=== PATIENT | male | born 1970 | race Caucasian/White ===

== ENCOUNTER 2021-12-31 12:31 | Emergency (ER) | payer OTHER ==
[2021-12-31 12:43] VITALS: BP 131/77; PULSE 86; TEMP 98.1; BMI 32.3
== END 2021-12-31 14:11 ==
LOC: JERFT 12:31
DX: L03.818 Cellulitis of other sites (principal)
CPT/HCPCS: 99281-25

== ENCOUNTER 2022-01-03 11:02 | Emergency (ER) | payer OTHER ==
[2022-01-03 11:08] VITALS: BP 146/81; PULSE 76; TEMP 97.9; BMI 32.3
[2022-01-03] MEDS ORDERED: LIDOCAINE 1%/EPI 1:100000 (20 ML MULTI DOSE VIAL) IJ ONE (11:55)
[2022-01-03] MEDS ORDERED: LIDOCAINE 1%/EPI 1:100000 (20 ML MULTI DOSE VIAL) ONE (11:57)
[2022-01-03] MEDS ORDERED: IBUPROFEN 600 MG TABLET (FP) PO ONE ×2 (12:23→12:26)
== END 2022-01-03 12:32 | disposition home or self-care (01) ==
LOC: JERFT 11:02
PROC: 0H96XZZ Drainage of Back Skin, External Approach (ICD-10-PCS; principal; 2022-01-03)
DX: L02.212 Cutaneous abscess of back [any part, except buttock and flank] (principal)
CPT/HCPCS: 87070; 87205; 99283-25

== ENCOUNTER 2022-01-12 10:48 | Emergency (ER) | payer OTHER ==
[2022-01-12 10:54] VITALS: BP 120/68; PULSE 80; TEMP 98.4; BMI 32.4
== END 2022-01-12 11:15 | disposition home or self-care (01) ==
LOC: JER 10:48
DX: Z48.00 Encounter for change or removal of nonsurgical wound dressing (principal)
CPT/HCPCS: 99281-25

== ENCOUNTER 2024-01-08 08:06 | Emergency (ER) | payer OTHER ==
[2024-01-08 08:17] VITALS: BP 108/74; PULSE 69; RESP 20; TEMP 98.3; BMI 31.9
[2024-01-08] MEDS ORDERED: FAMOTIDINE 20 MG/50 ML IVPB 20 MG/50 ML MG IVPB ONE (09:19)
[2024-01-08] MEDS: FAMOTIDINE 20 MG/50 ML IVPB 20 MG/50 ML MG IVPB ONE (09:36)
[2024-01-08 09:49] LABS: HEMATOCRIT 37.4 % (35.4-49); HEMOGLOBIN 12.5 G/dL (11.7-16.9); MCH 29.9 pg (25.7-33.7); MCHC 33.4 g/dl (32.0-35.9); MEAN CELL VOLUME 89.5 fl (80-96); MEAN PLT VOLUME 8.3 fl (7.5-11.1); PLATELET COUNT 239.9 10^3/uL (134-434); RBC 4.18 10^6/uL (4.00-5.60); RDW 14.5 % (11.9-15.9); WHITE BLOOD COUNT 7.2 10^3/uL (4.0-10.8)
[2024-01-08 09:56] LABS: PLATELET ESTIMATE ADEQUATE
[2024-01-08 10:00] LABS: ALBUMIN 4.2 g/dl (3.4-5.0); BILIRUBIN,TOTAL 0.6 mg/dl (0.2-1); CALCIUM 9.2 mg/dl (8.5-10.1); CREATININE 0.9 mg/dl (0.6-1.3); POTASSIUM 3.8 mmol/L (3.5-5.1); TOT PROT 6.6 g/dl (6.4-8.2)
== END 2024-01-08 12:00 | disposition home or self-care (01) ==
LOC: FER 08:06
PROC: 3E033GC Introduction of Other Therapeutic Substance into Peripheral Vein, Percutaneous Approach (ICD-10-PCS; principal; 2024-01-08)
DX: R10.817 Generalized abdominal tenderness (principal); R14.0 Abdominal distension (gaseous); K52.9 Noninfective gastroenteritis and colitis, unspecified
CPT/HCPCS: 36415; 76705-TC; 80053; 81003; 83690; 85027; 99284-25

== ENCOUNTER 2024-05-04 19:02 | Emergency (ER) | payer OTHER ==
[2024-05-04 19:16] VITALS: BP 126/74; PULSE 87; RESP 18; TEMP 98; BMI 32.3
== END 2024-05-04 22:45 | disposition home or self-care (01) ==
LOC: JERFT 19:02
DX: H60.502 Unspecified acute noninfective otitis externa, left ear (principal); H92.02 Otalgia, left ear
CPT/HCPCS: 99283-25

== ENCOUNTER 2024-06-10 13:39 | Emergency (ER) | payer OTHER ==
[2024-06-10 14:01] VITALS: BP 130/83; PULSE 80; RESP 16; TEMP 98.1; BMI 31.9
== END 2024-06-10 14:55 | disposition home or self-care (01) ==
LOC: FER 13:39
PROC: 0H96XZZ Drainage of Back Skin, External Approach (ICD-10-PCS; principal; 2024-06-10)
DX: L02.219 Cutaneous abscess of trunk, unspecified (principal)
CPT/HCPCS: 99283-25

== ENCOUNTER 2024-12-13 18:40 | Emergency (ER) | payer OTHER ==
[2024-12-13 18:55] VITALS: BP 157/92; PULSE 76; RESP 16; TEMP 98.2; BMI 29.2
== END 2024-12-13 20:13 | disposition home or self-care (01) ==
LOC: FER 18:40
PROC: 0H96XZZ Drainage of Back Skin, External Approach (ICD-10-PCS; principal; 2024-12-13)
DX: L02.212 Cutaneous abscess of back [any part, except buttock and flank] (principal)
CPT/HCPCS: 99283-25

== ENCOUNTER 2025-01-27 10:28 | Emergency (ER) | payer OTHER ==
[2025-01-27 10:49] VITALS: BP 112/82; PULSE 82; RESP 18; TEMP 98.2; BMI 32.3
[2025-01-27] MEDS ORDERED: ACETAMINOPHEN 500 MG TABLET (FP) ONE (11:15)
[2025-01-27] MEDS: ACETAMINOPHEN 500 MG TABLET (FP) PO ONE (11:18)
[2025-01-27 14:39] LABS: HIV INTERPRETATION NEGATIVE (NEGATIVE)
[2025-01-27 14:41] LABS: HCV DIAGNOSTIC IN-HOUSE W/RFLX NON-REACTIVE (NONREACTIVE)
== END 2025-01-27 11:27 | disposition home or self-care (01) ==
LOC: FER 10:28
PROC: 0H96XZZ Drainage of Back Skin, External Approach (ICD-10-PCS; principal; 2025-01-27)
DX: L02.212 Cutaneous abscess of back [any part, except buttock and flank] (principal)
CPT/HCPCS: 36415; 86803; 87070; 87076; 87205; 87389; 99283-25